=== PATIENT | female | born 1965 ===

== ENCOUNTER 2023-10-12 09:31 | Outpatient (REF) | payer OTHER, SELFPAY ==
--- NOTE | ~2023-10-12 | US_ITS ---
EXAMINATION: US ABDOMEN COMPLETE CLINICAL INFORMATION: History of liver lesion, gallbladder polyp. COMPARISON: None available. TECHNIQUE: Real-time imaging of the abdominal viscera. FINDINGS: PANCREAS: Normal. ABDOMINAL AORTA: The proximal, mid, and distal segments are normal in caliber. INFERIOR VENA CAVA: Visualized portions are normal. LIVER: The liver is normal in size. The liver contour is normal. Parenchymal echogenicity is normal. There is a 2.4 x 2 x 1.9 cm echogenic lesion in the right lobe of the liver. There is no intrahepatic biliary duct dilatation seen. GALLBLADDER: There are 2 echogenic nonmobile nonshadowing lesions adjacent to the gallbladder wall suggestive of small polyps. These measure 3 x 4 mm and 4 mm. No definite gallstones. The gallbladder is otherwise normal. COMMON BILE DUCT: Normal in caliber measuring 0.3 cm in diameter. RIGHT KIDNEY: Normal. No hydronephrosis. No renal calculi or focal parenchymal lesions. The kidney measures 10.2 cm in maximum dimension. LEFT KIDNEY: Normal. No hydronephrosis. No renal calculi or focal parenchymal lesions. The kidney measures 9.8 cm in maximum dimension. SPLEEN: Normal. The spleen measures 10.6 cm in maximum dimension. FREE FLUID: None. US/US abdomen complete IMPRESSION: 2.4 x 2 x 1.9 cm echogenic lesion in the right lobe of the liver. Comparison with old outside exams recommended. 2 small gallbladder wall polyps.
== END 2023-10-12 09:32 | disposition home or self-care (01) ==
LOC: HO.UMASIMG 09:31
PROVIDERS: Visit Provider Family Medicine
DX: K82.4 Cholesterolosis of gallbladder (principal)
CPT/HCPCS: 76700